=== PATIENT | female | born 1985 ===

== ENCOUNTER → 2018-01-11 15:19 | Outpatient (REF) | payer OTHER, MEDICARE, SELFPAY ==
[2018-01-11 15:35] LABS: Add Manual Diff / Slide Review NO; Basophils Percent Auto 0.5 % (0-2); Eosinophils Percent Auto 0.3 % (2-4); Hematocrit 35.4 % (36-46); Hemoglobin 12.3 g/dL (12.0-16.0); Mean Corpuscular HGB Conc 34.8 % (30-36); Mean Corpuscular Hemoglobin 29.3 PG (26-34); Mean Corpuscular Volume 84.3 fL (80-100); Monocytes Percent Auto 11.3 % (3-14); Neutrophils Absolute Auto 1400 /uL (3000-5900); Neutrophils Percent Auto 48.9 % (50-75); Platelet Count 137 X10^3/uL (150-400); Red Cell Distribution Width 13.1 % (11.6-14.8)
[2018-01-11 16:07] LABS: Alanine Aminotransferase 34 IU/L (9-52); Albumin 4.5 g/dL (3.5-5.0); Alkaline Phosphatase 68 U/L (38-126); Aspartate Aminotransferase 31 IU/L (14-36); BUN Creatinine Ratio 23.3 (6-22); Bilirubin Total 1.1 mg/dL (0.2-1.3); Calcium 9.6 mg/dL (8.4-10.2); Estimated Glomerular Filt Rate > 60.0 mL/min (>60); Globulin 4.6 g/dL (1.7-4.1); Glucose 97 mg/dL (70-100); HEMOLYSIS < 15 (0-50); Potassium 3.7 mmol/L (3.4-5.1); Sodium 144 mmol/L (137-145); Total Protein 9.1 g/dL (6.3-8.2)
[2018-01-11 16:12] LABS: C-Reactive Protein Quant < 0.5 mg/dL (<1.0)
== END ==
LOC: LAB 15:19
PROVIDERS: Visit Provider Internal Medicine
DX: K50.90 Crohn's disease, unspecified, without complications (principal)
CPT/HCPCS: 80053; 85025; 86140